=== PATIENT | male | born 1995 | race Caucasian/White ===

== ENCOUNTER 2017-02-11 01:09 | Emergency (ER) | payer OTHER ==
[~2017-02-11] VITALS: Ht 175.3 cm; Wt 63.0 kg
[2017-02-11 01:13] VITALS: BP 128/80; PULSE 97; TEMP 37.2; O2SAT 98; Ht 175.3 cm; Wt 63.0 kg
[2017-02-11] MEDS ORDERED: OXYCODONE HCL IR 5 MG TAB (IMMEDIATE RELEASE) PO STA (01:23)
--- NOTE | 2017-02-11 01:38 | EMERGENCY ROOM VISIT NOTE ---
History Report prepared by Briana: [address] Under the Supervision of: Dr. Min Rosario M.D. First contact with patient: 01:16 Chief Complaint: ANKLE PAIN Stated Complaint: HURT LEFT ANKLE/FOOT History of Present Illness The patient is a 22 year old male who presents to the Emergency Room with complaints of worsening ankle pain starting 6 hours ago. The patient states that he was playing basketball and rolled his ankle. He reports that he continued to play on it. He states that as the night has gone on, the pain has increased. He currently rates his pain as a 7/10 in severity. The patient states that he took Advil an hour ago and has tried compression wraps with no relief. He notes that it is worse when tries to walk on it and worse when he puts his foot on the floor. He denies ever hurting this ankle before, knee pain , back pain, and use of blood thinners. Source of History: patient Onset: 6 hours ago Position: ankle (left) Symptom Intensity: 7/10 Timing: worsening Modifying Factors (Worsening): other (walking and setting his foot down) Associated Symptoms: No back pain Note: The patient denies ever hurting his ankle before, knee pain, and use of blood thinners. Review of Systems See HPI for pertinent positives & negatives. A total of 6 systems reviewed and were otherwise negative. Past Medical & Surgical Medical Problems: (1) No Known Active Medical Problems Family History No pertinent family history Social History Smoking Status: Never Smoker Alcohol Use: none Marital Status: single Housing Status: lives with roommate Occupation Status: [employer] student Current/Historical Medications No Active Prescriptions or Reported Meds Allergies Coded Allergies: No Known Allergies (Unverified , 02/11/17) Physical Exam Vital Signs Date Time Temp Pulse Resp B/P (MAP) Pulse Ox O2 Delivery O2 Flow Rate FiO2 02/11/17 01:13 37.2 97 16 128/80 98 Room Air Physical Exam GENERAL: Patient is well appearing and in no acute distress. NECK: No stridor, no adenopathy, no meningismus, trachea is midline. LUNGS: No dyspnea. Clear to auscultation and equal bilaterally. No wheeze, no rhonchi. HEART: Regular rate and rhythm. No murmurs, rubs, gallops appreciated. BACK: No midline tenderness, no CVA tenderness EXTREMITIES: Normal motion all extremities, no cyanosis. Moderate amount of swelling to the left ankle anterior to the lateral malleolus. Tenderness with palpation. Pain with ROM in the left ankle. N/V intact. NEUROLOGIC: Alert and oriented, no acute motor or sensory deficits, no focal weakness, cranial nerves grossly intact. SKIN: No rash, no jaundice, no diaphoresis. Medical Decision & Procedures ER Provider Diagnostic Interpretation: X ray 3 view left ankle: The results were interpreted by me. Lateral soft tissue swelling. No fracture. No dislocation. Medications Administered Medications (Trade) Dose Ordered Sig/Rosa Elena Route Start Time Stop Time Status Last Admin Dose Admin Oxycodone HCl (Roxicodone Immediate Rel Tab) 5 mg NOW STAT PO 02/11/17 01:23 02/11/17 01:25 DC 02/11/17 01:32 5 MG Oxycodone HCl (Roxicodone Immediate Rel 5MG Home Pack) 1 homepack UD ONCE PO 02/11/17 02:15 02/11/17 02:16 DC 02/11/17 02:26 1 HOMEPACK ED Course 0117: The patient was evaluated in room B6. A complete history and physical exam was performed. 0123: Ordered Oxycodone HCl 5 mg PO. 0214: Reevaluated the patient. Discussed results and discharge instructions: He verbalized understanding and agreement. The patient is ready for discharge. 0215: Ordered Oxycodone HCL 1 homepack PO. Medical Decision Differential: Fracture, Dislocation,Septic Joint, Ligamentous Injury, amongst other pathologies entertained. 22 yr old male arrives for evaluation of left ankle injury. No fracture/ dislocation by xray. Not infectious. Likely ligamentous tear/strain. Given amount of swelling and clear discomfort seems reasonable given very limited number oxy IR with restrictions reviewed with him. BOONE reviewed. Advised [facility] follow up if continues issues in 1 week. Medication Reconcilliation Current Medication List: was personally reviewed by me Blood Pressure Screening Patient's blood pressure: Normal blood pressure Blood pressure disposition: Did not require urgent referral Impression Primary Impression: Moderate left ankle sprain Scribe Attestation The scribe's documentation has been prepared under my direction and personally reviewed by me in its entirety. I confirm that the note above accurately reflects all work, treatment, procedures, and medical decision making performed by me. Departure Information Dispostion Home / Self-Care Prescriptions No Active Prescriptions or Reported Meds Referrals [facility] Forms HOME CARE DOCUMENTATION FORM, IMPORTANT VISIT INFORMATION Patient Instructions ED Sprain Ankle, My [facility] Additional Instructions You have received a narcotic pain medication. These medications may cause drowsiness and should not be used with other sedative medications. Do not drive , drink alcohol, perform dangerous activities, nor make important decisions after taking these medications. skilled nursing use or inappropriate use may lead to addiction.
[2017-02-11] MEDS ORDERED: OXYCODONE IR HOME PACK PO ONE (02:15)
--- NOTE | 2017-02-11 06:35 | DIAGNOSTIC IMAGING REPORT ---
L ANKLE MIN 3 VIEWS ROUTINE CLINICAL HISTORY: Left ankle pain status post trauma COMPARISON: None. DISCUSSION: No fractures or dislocations are visualized. IMPRESSION: No fractures identified. Electronically signed by: Carlos Owusu M.D. 02/11/2017 6:34 AM Dictated Date/Time: 02/11/2017 6:33 AM
== END 2017-02-11 02:49 | disposition home or self-care (01) ==
LOC: C.EDB 01:10
DX: S93.402A Sprain of unspecified ligament of left ankle, initial encounter (principal); X50.1XXA Overexertion from prolonged static or awkward postures, initial encounter; Y93.67 Activity, basketball; Y92.310 Basketball court as the place of occurrence of the external cause